=== PATIENT | male | born 1960 | race Caucasian/White ===

== ENCOUNTER 2019-10-22 12:13 | Emergency (ER) | payer MEDICAID ==
[~2019-10-22] VITALS: Ht 167.6 cm; Wt 69.3 kg
[~2019-10-22 12:13] MED LIST: FLUO40CA9; TRAZ-175 PO; TRAZADONE; [UNRECOGNIZED DRUG - REMARK]
[2019-10-22] MEDS ORDERED: QUET400T PO (12:36)
[2019-10-22] MEDS ORDERED: ISOS30TA8 PO (12:36)
[2019-10-22] MEDS ORDERED: METO25TA35 PO (12:36)
[2019-10-22] MEDS ORDERED: ASPI-496 PO (12:36)
[2019-10-22] MEDS ORDERED: ALBU18HF INH (12:36)
[2019-10-22] MEDS ORDERED: ATOR40TA PO (12:36)
[2019-10-22] MEDS ORDERED: GABA100C PO (12:36)
--- NOTE | 2019-10-22 13:01 | NUR ---
PT IN [facility]OSPITAL GOWN. EKG DONE. LABS DRAWN AND CHEST X-RAY DONE. PT ON CARDIAC AND VITALS MONITORS.
[2019-10-22 13:04] LABS: BASOPHILS # (AUTO) 0.06 x10^3/uL (0-0.1); BASOPHILS % (AUTO) 1 % (0-1); EOSINOPHILS # (AUTO) 0.17 x10^3/uL (0-0.4); EOSINOPHILS % (AUTO) 3 % (1-7); LYMPHOCYTES # (AUTO) 1.72 x10^3/uL (1-3.4); LYMPHOCYTES % (AUTO) 25 % (22-44); MD NO; MEAN CORPUSCULAR HEMOGLOBIN 33.9 pg (27.5-34.5); MEAN CORPUSCULAR HGB CONC 34.4 g/dL (33.2-36.2); MEAN CORPUSCULAR VOLUME 98.5 fL (81-97); MEAN PLATELET VOLUME 8.7 fL (7.4-10.4); MONOCYTES # (AUTO) 0.54 x10^3/uL (0.2-0.8); MONOCYTES % (AUTO) 8 % (2-9); NEUTROPHILS # (AUTO) 4.36 x10^3/uL (1.8-6.8); NEUTROPHILS % (AUTO) 64 % (42-75); PLATELET COUNT 201 x10^3/uL (130-400); RED CELL DISTRIBUTION WIDTH 13.6 % (9.4-14.8)
[2019-10-22 13:32] LABS: CHLORIDE 104 mmol/L (98-107)
[2019-10-22 13:39] LABS: ALBUMIN 3.4 g/dL (3.4-5.0); ANION GAP 10 mmol/L (5-15); CALCIUM 8.6 mg/dL (8.5-10.1)
[2019-10-22 13:44] LABS: ALANINE AMINOTRANSFERASE 19 U/L (12-78); ALKALINE PHOSPHATASE 105 U/L (45-117); BILIRUBIN,TOTAL 0.4 mg/dL (0.2-1.0); CREATINE KINASE, TOTAL 173 U/L (39-308); CREATININE 0.63 mg/dL (0.7-1.3); TOTAL PROTEIN 7.5 g/dL (6.4-8.2); TROPONIN I < 0.015 ng/mL (0.000-0.045)
--- NOTE | 2019-10-22 13:49 | NUR ---
TASK RN: ZACK SENT
[2019-10-22] MEDS ORDERED: THIAMINE 100MG TABLET PO ONE (14:00)
[2019-10-22 14:03] LABS: MICROSCOPIC NOT IND
[2019-10-22] MEDS ORDERED: THIAMINE 100MG TABLET ONE (14:09)
--- NOTE | 2019-10-22 14:17 | NUR ---
PT ABLE TO AMBULATE 80+FT STEADILY TO BATHROOM WITHOUT ASSIST. PT VSS. WILL CONTINUE TO MONITOR.
[2019-10-22 15:20] VITALS: BP 121/88
== END 2019-10-22 15:21 | disposition home or self-care (01) ==
LOC: ED 13:05
DX: R53.1 Weakness (principal); R20.2 Paresthesia of skin; M79.89 Other specified soft tissue disorders; R07.89 Other chest pain
CPT/HCPCS: 36415; 71045; 80053; 81003; 82550; 84484; 85025; 93005; 99285